=== PATIENT | male | born 1980 | race Caucasian/White ===

== ENCOUNTER 2018-10-08 11:43 | Emergency (ER) | payer MEDICAID, MEDICARE ==
[~2018-10-08] VITALS: Ht 182.9 cm; Wt 79.9 kg
--- NOTE | 2018-10-08 12:02 | NUR ---
PT AWARE URINE SAMPLE IS NEEDED
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
[2018-10-08 12:12] LABS: BASOPHILS # (AUTO) 0.05 x10^3/uL (0-0.1); BASOPHILS % (AUTO) 1 % (0-1); EOSINOPHILS # (AUTO) 0.24 x10^3/uL (0-0.4); EOSINOPHILS % (AUTO) 2 % (1-7); LYMPHOCYTES # (AUTO) 2.42 x10^3/uL (1-3.4); LYMPHOCYTES % (AUTO) 23 % (22-44); MD NO; MEAN CORPUSCULAR HEMOGLOBIN 31.4 pg (27.5-34.5); MEAN CORPUSCULAR HGB CONC 33.1 g/dL (33.2-36.2); MEAN PLATELET VOLUME 6.6 fL (7.4-10.4); MONOCYTES # (AUTO) 0.82 x10^3/uL (0.2-0.8); MONOCYTES % (AUTO) 8 % (2-9); NEUTROPHILS # (AUTO) 7.24 x10^3/uL (1.8-6.8); NEUTROPHILS % (AUTO) 67 % (42-75); PLATELET COUNT 316 x10^3/uL (130-400); RED BLOOD COUNT 4.34 x10^6/uL (4.38-5.82); RED CELL DISTRIBUTION WIDTH 14.2 % (9.4-14.8)
[2018-10-08 12:24] LABS: ALBUMIN 3.8 g/dL (3.4-5.0); ANION GAP 7 mmol/L (5-15); CALCIUM 8.5 mg/dL (8.5-10.1); CHLORIDE 108 mmol/L (98-107)
[2018-10-08] MEDS ORDERED: LORazepam 1MG TABLET PO ONE (12:30)
[2018-10-08 12:37] LABS: ALANINE AMINOTRANSFERASE 34 U/L (12-78); ALKALINE PHOSPHATASE 116 U/L (45-117); BILIRUBIN,TOTAL 0.3 mg/dL (0.2-1.0); CREATININE 0.97 mg/dL (0.7-1.3); SALICYLATE LEVEL < 1.7 mg/dL (2.8-20.0); TOTAL PROTEIN 7.3 g/dL (6.4-8.2)
[2018-10-08] MEDS ORDERED: LORazepam 1MG TABLET ONE (12:53)
--- NOTE | 2018-10-08 12:56 | NUR ---
MELISSA BARBOSA THE PR[facility]
[2018-10-08 14:11] VITALS: BP 138/70
== END 2018-10-08 14:15 | disposition home or self-care (01) ==
LOC: ED 14:00
DX: F41.1 Generalized anxiety disorder (principal); F33.1 Major depressive disorder, recurrent, moderate
CPT/HCPCS: 36415; 80053; 80307; 84443; 85025; 99284

== ENCOUNTER 2018-10-20 12:35 | Emergency (ER) | payer MEDICAID ==
[~2018-10-20] VITALS: Ht 182.9 cm; Wt 74.4 kg
[2018-10-20 12:47] VITALS: BP 103/66
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
[2018-10-20] MEDS ORDERED: IBUPROFEN 200 MG TABLET PO ONE (13:30)
[2018-10-20] MEDS ORDERED: IBUPROFEN 600 MG TABLET ONE (13:33)
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
--- NOTE | 2018-10-20 13:54 | NUR ---
REPORT AND CARE TO JOSIE WOMACK AT THIS TIME
[2018-10-20] MEDS ORDERED: NEOSPORIN OINT. PKT 1 PACKET ONE (13:59)
== END 2018-10-20 14:49 | disposition home or self-care (01) ==
LOC: ED 13:38
DX: S90.414A Abrasion, right lesser toe(s), initial encounter (principal); S60.511A Abrasion of right hand, initial encounter; L03.032 Cellulitis of left toe; S90.512A Abrasion, left ankle, initial encounter; S90.415A Abrasion, left lesser toe(s), initial encounter; Z72.9 Problem related to lifestyle, unspecified; F41.1 Generalized anxiety disorder; F32.9 Major depressive disorder, single episode, unspecified; F17.210 Nicotine dependence, cigarettes, uncomplicated; X58.XXXA Exposure to other specified factors, initial encounter; Y93.89 Activity, other specified; Y92.89 Other specified places as the place of occurrence of the external cause; Y99.8 Other external cause status
CPT/HCPCS: 99283